=== PATIENT | female | born 1985 | race Caucasian/White ===

== ENCOUNTER 2017-01-18 08:07 | Emergency (ER) | payer OTHER, MEDICAID ==
[2017-01-18 08:18] VITALS: BP 140/73
--- NOTE | 2017-01-18 08:46 | ERNOTE ---
Medical Problem HPI - Narrative Date of Service: 01/18/17 - General Chief Complaint: Laceration Time Seen by Provider: 01/18/17 08:43 Source: patient Exam Limitations: no limitations - Immun/Allergies/Home Medications Immunizations: IMMUNIZATION HX Immunizations Up to Date Yes Allergies/Adverse Reactions: Allergies No Known Allergies Allergy (Unverified 01/18/17 08:18) Home Medications: HOME MEDICATIONS Citalopram Hydrobromide [Celexa] 40 mg PO DAILY 01/18/17 [Last Taken Unknown] busPIRone HCL [Buspar] 5 mg PO DAILY 01/18/17 [Last Taken Unknown] - History of Present History Narrative: Presents with c/o laceration to her right index finger. Injury occurred while reaching for a dishware, which broke in her hand. Occurred just [employer]. Bleeding controlled by pressure. Severity: mild Review of Systems - Review of Systems Constitutional: Present: no symptoms reported EYE: Present: no symptoms reported ENT: Present: no symptoms reported Respiratory: Present: no symptoms reported Cardiology: Present: no symptoms reported Gastrointestinal/Abdominal: Present: no symptoms reported Genitourinary: Present: no symptoms reported Musculoskeletal: Present: See HPI Skin: Present: See HPI Neurological: Present: no symptoms reported Endocrine: Present: no symptoms reported Hematologic/Lymphatic: Present: no symptoms reported Psych: Present: no symptoms reported All Other Systems: All systems neg except as marked - Patient's Past Medical History Patient History - Medical: Depression Patient History - Cardiac/Respiratory: No pertinent hx Patient History - Cancer: No Hx of Cancer Patient History - Surgical Procedures: Hernia Repair - Social History Smoking Status: Current every day smoker Have you smoked in the past 12 months: Yes - Immunizations Immunizations Up to Date: Yes Physical Exam - Physical Exam General Appearance: Present: wd/wn, alert, no apparent distress Neck: Present: normal inspection, nontender Respiratory: Present: no respiratory distress, normal breath sounds, lungs clear Cardiovascular/Chest: Present: regular rate, rhythm, no murmur Extremity Exam: Present: other - 1.5 cm superficial laceration noted on lehman surface of proximal phalanx of right index finger. Bleeding controlled by pressure. Skin Exam: Present: normal color ED Progress - Vital Signs Patient's Vital Signs:: I have reviewed the patient's vital signs. Vital Signs: Vital Signs 01/18/17 08:14 Temperature 36.8 C Pulse Rate 92 Respiratory 14 Rate Blood Pressure 140/73 O2 Sat by Pulse 97 Oximetry - Progress/Reassessment Chief Complaint: Laceration Procedures Right Proximal Volar Finger 2nd Digit Date and Time: 01/18/2017 @ 0910 am Anesthesia: 1% Lidocaine - 8 cc of lidocaine injected to achieve digital block of right index finger. Length of Repair/Wound (cm): 1.5 Wound's Depth/Shape: superficial, linear Wound Explored: clean Wound Intervention: irrigated w/saline Distal NVT: neuro/vasc intact Wound Repaired With: sutures Suture Size/Type: 4-0, nylon Number of Sutures: 8 Layer Closure: Simple Wound Dressing: sterile dressing applied Complications: Pt carla procedure well Departure - Departure Clinical Impression: Laceration of right index finger w/o foreign body w/o damage to nail Qualifiers: Encounter type: initial encounter Qualified Code(s): S61.210A - Laceration without foreign body of right index finger without damage to nail, initial encounter Disposition: Home self-care Condition: Good Instructions: Laceration Care, Adult, [id number] Additional Instructions: Keep wound clean and dry at all times. Apply neosporin topical antibiotic 3 times daily. Follow up with your PCP in 5 days for wound check, and in 8-10 days for suture removal.
== END 2017-01-18 09:44 | disposition home or self-care (01) ==
LOC: ER 08:07
PROC: 0HQFXZZ Repair Right Hand Skin, External Approach (ICD-10-PCS; principal; 2017-01-18)
DX: S61.210A Laceration without foreign body of right index finger without damage to nail, initial encounter (principal); W25.XXXA Contact with sharp glass, initial encounter; F17.210 Nicotine dependence, cigarettes, uncomplicated; F32.9 Major depressive disorder, single episode, unspecified